=== PATIENT | female | born 1985 | race Caucasian/White ===

== ENCOUNTER 2017-01-21 12:52 | Emergency (ER) | payer MEDICAID, OTHER ==
[~2017-01-21] VITALS: Ht 152.4 cm; Wt 61.5 kg
[2017-01-21 12:58] VITALS: Ht 152.4 cm; Wt 61.5 kg
[2017-01-21 14:01] LABS: ADD SCAN DIFF NO
[2017-01-21 14:04] LABS: BASOPHILS % 0.3 % (0.0-2.0); EOSINOPHILS # 0.2 10^3/ul (0.0-0.5); EOSINOPHILS % 2.2 % (0.0-7.0); HEMATOCRIT 33.6 % (37.0-47.0); LYMPHOCYTES % 19.9 % (15.0-51.0); MEAN CORPUSCULAR HEMOGLOBIN 28.7 pg (29.0-33.0); MEAN CORPUSCULAR HGB CONC 32.7 g/dl (32.0-37.0); MEAN CORPUSCULAR VOLUME 87.7 fl (82.0-101.0); MEAN PLATELET VOLUME 10.2 fl (7.4-10.4); MONOCYTES % 10.2 % (0.0-11.0); NEUTROPHIL # 6.8 10^3/ul (1.6-7.5); NEUTROPHILS % 67.1 % (39.0-77.0); PLATELET COUNT 276 10^3/UL (140-415); RED BLOOD COUNT 3.83 10^6/ul (4.20-5.40); RED CELL DISTRIBUTION WIDTH 14.5 % (11.5-14.5); WHITE BLOOD COUNT 10.1 10^3/ul (4.8-10.8)
[2017-01-21 14:07] LABS: ADD UMIC YES; URINE BILIRUBIN (Dip) NEGATIVE (NEGATIVE); URINE BLOOD (Dip) TRACE (NEGATIVE); URINE COLOR LT. YELLOW (YELLOW); URINE GLUCOSE (Dip) NEGATIVE (NEGATIVE); URINE KETONES (Dip) NEGATIVE (NEGATIVE); URINE LEUKOCYTE ESTERASE (Dip) NEGATIVE (NEGATIVE); URINE NITRITE (Dip) NEGATIVE (NEGATIVE); URINE TOTAL PROTEIN (Dip) NEGATIVE (NEGATIVE); URINE UROBILINOGEN (Dip) 0.2 E.U./dL (0.1-1.0)
[2017-01-21 14:20] LABS: BACTERIA,URINE FEW; URINE RBCS NONE SEEN /HPF (0)
--- NOTE | 2017-01-21 14:57 | RADRPT ---
PROCEDURE: US OB. CLINICAL INDICATION: Vaginal bleeding. TECHNIQUE: Transabdominal and transvaginal imaging of the uterus was performed. COMPARISON: None. FINDINGS: A single intrauterine is present with identification of a gestational sac, pole, and yolk sac. [place] rump length measures 1.4 cm, corresponding to a gestational age of 7 weeks 4 days. There is a small subchorionic hematoma, measuring up to 1.2 cm. Real time examination shows cardiac activity. The heart rate is 168 beats per minute. No myoma or adnexal mass. IMPRESSION: 1. Single viable intrauterine gestation of approximately 7 weeks 4 days. The estimated date of [place] is 09/05/2016 on the basis of this examination. There is a small subchorionic hematoma. RPTAT: EE .Kal Cunningham MD, Date Time Electronically viewed and signed by .Kal Cunningham MD, on 01/21/2017 15:01 .C/
--- NOTE | 2017-01-21 15:37 | ERD ---
ER Documentation Chief Complaint Date/Time DATE: 01/21/17 TIME: 15:34 Chief Complaint vag bleed x 2 days; pelvic and back pain HPI This is a 31-year-old female that presents today with vaginal bleeding for the last 2 days. Patient is currently about 7 weeks and states that yesterday she started spotting. A0. Patient is also complaining of right -sided flank pain however she denies urinary frequency or dysuria. She denies any pelvic pain or vaginal discharge. ROS 12 point review of systems was done, all negative except per HPI. PMhx/Soc History of Surgery: Yes ( x 1) Anesthesia Reaction: No Hx Neurological Disorder: No Hx Respiratory Disorders: Yes (asthma) Hx Cardiac Disorders: No Hx Psychiatric Problems: No Hx Miscellaneous Medical Probl: No Hx Alcohol Use: No Hx Substance Use: No Hx Tobacco Use: No Smoking Status: Never smoker Physical Exam Vitals Vital Signs Date Time Temp Pulse Resp B/P Pulse Ox O2 Delivery O2 Flow Rate FiO2 01/21/17 12:58 97.8 65 18 118/69 96 Physical Exam GENERAL: The patient is well developed and appropriate for usual state of health , in no apparent distress. HEENT: Atraumatic. CHEST: Clear to auscultation bilaterally. There are no rales, wheezes or rhonchi. HEART: Regular rate and rhythm. No murmurs, clicks, rubs or gallops. ABDOMEN: Soft, nontender and nondistended. Good bowel sounds. No rebound or guarding. No gross peritonitis. No gross organomegaly or masses. No Funez sign or McBurney point tenderness. BACK: No midline or flank tenderness. NEURO: Alert and oriented. Result Diagram: 01/21/17 1350 Results 24 hrs Laboratory Tests Test 01/21/17 13:30 01/21/17 13:50 Urine Color LT. YELLOW Urine Clarity CLEAR Urine pH 7.0 Urine Specific [place] 1.015 Urine Ketones NEGATIVE Urine Nitrite NEGATIVE Urine Bilirubin NEGATIVE Urine Urobilinogen 0.2 E.U./dL Urine Leukocyte Esterase NEGATIVE Urine Microscopic RBC NONE SEEN/HPF Urine Microscopic WBC 0-2/HPF Urine Epithelial Cells MODERATE Urine Bacteria FEW Urine Hemoglobin TRACE Urine Glucose NEGATIVE% Urine Total Protein NEGATIVE White Blood Count 10.110^3/ul Red Blood Count 3.8310^6/ul Hemoglobin 11.0g/dl Hematocrit 33.6% Mean Corpuscular Volume 87.7fl Mean Corpuscular Hemoglobin 28.7pg Mean Corpuscular Hemoglobin Concent 32.7g/dl Red Cell Distribution Width 14.5% Platelet Count 52462^3/UL Mean Platelet Volume 10.2fl Neutrophils % 67.1% Lymphocytes % 19.9% Monocytes % 10.2% Eosinophils % 2.2% Basophils % 0.3% Nucleated Red Blood Cells % 0.0/100WBC Neutrophils # 6.810^3/ul Lymphocytes # 2.010^3/ul Monocytes # 1.010^3/ul Eosinophils # 0.210^3/ul Basophils # 0.010^3/ul Nucleated Red Blood Cells # 0.010^3/ul Beta HCG, Quantitative 858561.0mIU/ml Procedures/MDM Differential diagnosis: Threatened , missed , incomplete , ectopic , molar , UTI, pyelonephritis. At this time patient may be having a threatened , however appears normal. Patient does have a small subchorionic hemorrhage which could be the cause of her bleeding. She is hemodynamically stable with no electrolyte abnormalities. Patient is Rh+. Patient needs to follow-up with her primary care doctor within 1-2 days or return to ER sooner if symptoms worsen. My medical decision making was shared with the patient she understands and agrees with plan. Departure Diagnosis: Primary Impression: Threatened Condition: Stable Patient Instructions: Possible Miscarriage (Threatened ) Additional Instructions: Llame al doctor SANCHO y ángel billie MARYCARMEN PARA DENTRO DE 1-2 VELEZ.Dgale a la secretaria que nosotros le instruimos hacer esta marycarmen.Avise o llame si cochran condicin se empeora antes de la marycarmen. Regresa aqui si peor o no mejor. BENNY HA Jan 21, 2017 15:37
== END 2017-01-21 15:40 | disposition home or self-care (01) ==
LOC: FTE 12:52
DX: O20.0 Threatened abortion (principal); O99.52 Diseases of the respiratory system complicating childbirth; J45.909 Unspecified asthma, uncomplicated; Z3A.01 Less than 8 weeks gestation of pregnancy
CPT/HCPCS: 76801; 81001; 81003; 84702; 85025; 86900; 86901